=== PATIENT | female | born 1985 | race Caucasian/White ===

== ENCOUNTER 2016-11-03 15:45 | Emergency (ER) | payer OTHER ==
--- OUTSIDE RECORDS SUMMARY | ~2016-11-03 | XMS ---
Demographics + + + | Address | [facility] [address] | | | [place] [address] | + + + | Preferred Language | Unknown | + + + | Marital Status | Unknown | + + + | Judaism Affiliation | Unknown | + + + | Race | Unknown | + + + | Ethnic Group | Unknown | + + + Author + + + | Author | [facility] | + + + | Organization | [facility] | + + + | Address | [address] | | | [place] [address] | + + + | Phone | | + + + Care Team Providers + + + + | Care Community Living Coach Name | Role | Phone | + + + + Unavailable | Unavailable | + + + + PROBLEMS +---------+ + + +--------+ + + | Type | Condition | ICD9-CM | [id number] | Onset | Condition | SNOMED | | | | Code | Code | Dates | Status | Code | +---------+ + + +--------+ + + | Problem | Essential | | I10 | | Active | 04017770 | | | (primary) | | | | | | | | hypertensi | | | | | | | | on | | | | | | +---------+ + + +--------+ + + | Problem | Hyperlipid | | E78.5 | | Active | 72432898 | | | emia | | | | | | +---------+ + + +--------+ + + | Problem | TMJ | 524.60 | | | Active | 06424655 | | | DISORDERS | | | | | | | | NOS | | | | | | +---------+ + + +--------+ + + | Problem | Tendonitis | 726.90 | | | Active | 71634966 | | | NOS | | | | | | +---------+ + + +--------+ + + | Problem | UTI | 599.0 | | | Active | 77596176 | | | [Urinary | | | | | | | | tract | | | | | | | | infection] | | | | | | +---------+ + + +--------+ + + ALLERGIES Unknown Allergies SOCIAL HISTORY No smoking Hx information available PLAN OF CARE VITAL SIGNS MEDICATIONS Unknown Medications RESULTS No Results PROCEDURES No Known procedures IMMUNIZATIONS No Known Immunizations"
[~2016-11-03 15:45] MED LIST: ATORVASTATIN CA20 MG PO; BUDEPRION XL300 MG PO; DASETTA1 EACH PO; DIVALPROEX SOD250 MG PO; ESCITALOPRAM OX20 MG PO; GABAPENTIN400 MG PO; GEODON60 MG PO; HYDRALAZINE HCL25 MG PO; HYDROXYZINE HCL50 MG PO; KEFLEX500 MG PO; LAMOTRIGINE200 MG PO; MELOXICAM15 MG PO; METHOCARBAMOL750 MG PO; NAPROXEN500 MG PO; NUCYNTA50 MG PO; PRENATAL PLUS1 EAC2 PO; PROPRANOLOL HCL40 MG PO; PROPRANOLOL HCL80 M1 PO; RANITIDINE HCL150 MG PO; TIMOLOL MALEATE MC
== END 2016-11-03 15:55 | disposition left against medical advice (07) ==
LOC: ED 15:45
DX: Z53.21 Procedure and treatment not carried out due to patient leaving prior to being seen by health care provider (principal)

== ENCOUNTER 2016-11-10 23:28 | Emergency (ER) | payer OTHER ==
[~2016-11-10] VITALS: Ht 167.6 cm; Wt 72.6 kg
--- OUTSIDE RECORDS SUMMARY | ~2016-11-10 | XMS ---
Demographics + + + | Address | [facility] [address] | | | [place] [address] | + + + | Preferred Language | Unknown | + + + | Marital Status | Unknown | + + + | Denominational Affiliation | Unknown | + + + | Race | Unknown | + + + | Ethnic Group | Unknown | + + + Author + + + | Author | [facility] | + + + | Organization | [facility] | + + + | Address | [address] | | | [place] [address] | + + + | Phone | | + + + Care Team Providers + + + + | Care Biztalk Developer Name | Role | Phone | + + + + Unavailable | Unavailable | + + + + PROBLEMS +---------+ + + +--------+ + + | Type | Condition | ICD9-CM | [id number] | Onset | Condition | SNOMED | | | | Code | Code | Dates | Status | Code | +---------+ + + +--------+ + + | Problem | TMJ | 524.60 | | | Active | [id number] | | | DISORDERS | | | | | | | | NOS | | | | | | +---------+ + + +--------+ + + | Problem | Crushing | S67.21XA | | | Active | 20208476 | | | injury of | | | | | | | | finger of | | | | | | | | right hand | | | | | | +---------+ + + +--------+ + + | Problem | Crushing | | S67.198A | | Active | 59820270 | | | injury of | | | | | | | | other | | | | | | | | finger, | | | | | | | | initial | | | | | | | | encounter | | | | | | +---------+ + + +--------+ + + | Problem | Tendonitis | 726.90 | | | Active | 69530961 | | | NOS | | | | | | +---------+ + + +--------+ + + | Problem | UTI | 599.0 | | | Active | 71444066 | | | [Urinary | | | | | | | | tract | | | | | | | | infection] | | | | | | +---------+ + + +--------+ + + | Problem | Essential | | I10 | | Active | 83614645 | | | (primary) | | | | | | | | hypertensi | | | | | | | | on | | | | | | +---------+ + + +--------+ + + | Problem | Hyperlipid | | E78.5 | | Active | 36983238 | | | emia | | | | | | +---------+ + + +--------+ + + ALLERGIES + + + + +--------+ | Substance | Reaction | Event Type | Date | Status | + + + + +--------+ | Robitussin AC | Unknown | Drug Allergy | Oct, | Active | + + + + +--------+ | Codeine | Unknown | Drug Allergy | Oct, | Active | + + + + +--------+ | Vicodin | Unknown | Drug Allergy | Oct, | Active | + + + + +--------+ | Ditropan | Unknown | Drug Allergy | Oct, | Active | + + + + +--------+ SOCIAL HISTORY No smoking Hx information available PLAN OF CARE + +---------+ | Activity | Details | + +---------+ +---+ | | +---+ + + + | Follow Up | prn Reason:null | + + + | Pending Test | X ray : Finger LT 2nd Digit 2+ view | + + + VITAL SIGNS + + + + | Height | 66 in | 2016-11-03 | + + + + | Weight | 165.6 lbs | 2016-11-03 | + + + + | BMI | 26.73 kg/m2 | 2016-11-03 | + + + + | Temperature | 98.1 degrees Fahrenheit | 2016-11-03 | + + + + | Heart Rate | 78 /min | 2016-11-03 | + + + + | Blood pressure systolic | 116 mm Hg | 2016-11-03 | + + + + | Blood pressure diastolic | 77 mm Hg | 2016-11-03 | + + + + MEDICATIONS + + + + +--------+ + +--------+ | Medicati | Instruct | Dosage | Frequenc | Start | End Date | Duration | Status | | on | ions | | y | Date | | | | + + + + +--------+ + +--------+ | Divalpro | | | | | | | Active | | ex | | | | | | | | | Sodium | | | | | | | | | 250 MG | | | | | | | | + + + + +--------+ + +--------+ | Methocar | Orally | 1 tablet | 4h | | | | Active | | bamol | every 4 | | | | | | | | 750 MG | hrs | | | | | | | + + + + +--------+ + +--------+ | Atorvast | Orally | 1 tablet | 24h | | | | Active | | atin | Once a | | | | | | | | Calcium | day | | | | | | | | 20 MG | | | | | | | | + + + + +--------+ + +--------+ | HydrOXYz | Orally | 1 tablet | 6h | | | | Active | | ine HCl | every 6 | as | | | | | | | 50 MG | hrs | needed | | | | | | + + + + +--------+ + +--------+ | BuPROPio | Orally | 1 tablet | 24h | | | | Active | | n HCl ER | Once a | in the | | | | | | | (XL) | day | morning | | | | | | | 300 MG | | | | | | | | + + + + +--------+ + +--------+ | Tapentad | Orally | 1 tablet | 6h | | | | Active | | ol HCl | every 6 | | | | | | | | 50 MG | hrs | | | | | | | + + + + +--------+ + +--------+ | Proprano | Orally | 1 tablet | 12h | | | | Active | | lol HCl | Twice a | | | | | | | | 80 MG | day | | | | | | | + + + + +--------+ + +--------+ | Naproxen | Orally | 1 tablet | 12h | | | | Active | | 500 MG | Twice a | | | | | | | | | day | | | | | | | + + + + +--------+ + +--------+ | Ranitidi | Orally | 1 | 24h | | | | Active | | ne HCl | Once a | capsule | | | | | | | 150 MG | day | at | | | | | | | | | bedtime | | | | | | + + + + +--------+ + +--------+ | Norethin | Orally | 1 tablet | 24h | | | | Active | | dron-Eth | Once a | | | | | | | | inyl | day | | | | | | | | Estrad-F | | | | | | | | | e | | | | | | | | | 1-20/1-3 | | | | | | | | | 0/1-35 | | | | | | | | | MG-MCG | | | | | | | | + + + + +--------+ + +--------+ | Escitalo | Orally | 0.5 | 24h | | | | Active | | pram | Once a | tablet | | | | | | | Oxalate | day | | | | | | | | 20 MG | | | | | | | | + + + + +--------+ + +--------+ | Lamotrig | Orally | 1 tablet | 12h | | | | Active | | ine 200 | Twice a | | | | | | | | MG | day | | | | | | | + + + + +--------+ + +--------+ RESULTS No Results PROCEDURES + + + + + | Procedure | Date Ordered | Related Diagnosis | Body Site | + + + + + | Est Level III | November 03, 2016 | | | | Intermediate | | | | + + + + + IMMUNIZATIONS No Known Immunizations"
--- OUTSIDE RECORDS SUMMARY | ~2016-11-10 | XMS ---
Demographics + + + | Address | [facility] [address] | | | [place] [address] | + + + | Preferred Language | Unknown | + + + | Marital Status | Unknown | + + + | Sikhism Affiliation | Unknown | + + + | Race | Unknown | + + + | Ethnic Group | Unknown | + + + Author + + + | Author | [facility] | + + + | Organization | [facility] | + + + | Address | [address] | | | [place] [address] | + + + | Phone | | + + + Care Team Providers + + + + | Care Ski Patrol Name | Role | Phone | + + + + Unavailable | Unavailable | + + + + PROBLEMS +---------+ + + +--------+ + + | Type | Condition | ICD9-CM | [id number] | Onset | Condition | SNOMED | | | | Code | Code | Dates | Status | Code | +---------+ + + +--------+ + + | Problem | Essential | | I10 | | Active | [id number] | | | (primary) | | | | | | | | hypertensi | | | | | | | | on | | | | | | +---------+ + + +--------+ + + | Problem | Hyperlipid | | E78.5 | | Active | 05670338 | | | emia | | | | | | +---------+ + + +--------+ + + | Problem | TMJ | 524.60 | | | Active | 98786851 | | | DISORDERS | | | | | | | | NOS | | | | | | +---------+ + + +--------+ + + | Problem | Tendonitis | 726.90 | | | Active | 42159567 | | | NOS | | | | | | +---------+ + + +--------+ + + | Problem | UTI | 599.0 | | | Active | 10804657 | | | [Urinary | | | [...] + + + | Follow Up | 3 Months Reason:null | + + + | Pending Test | Sedimentation Rate-Westergren | + + + | Pending Test | Comp. Metabolic Panel (14) | + + + | Pending Test | Lipid Panel | + + + | Pending Test | TSH, 3rd Generation | + + + VITAL SIGNS + + + + | Height | 66 in | 2016-10-29 | + + + + | Weight | 170.2 lbs | 2016-10-29 | + + + + | BMI | 27.47 kg/m2 | 2016-10-29 | + + + + | Temperature | 98.7 degrees Fahrenheit | 2016-10-29 | + + + + | Heart Rate | 84 /min | 2016-10-29 | + + + + | Blood pressure systolic | 118 mm Hg | 2016-10-29 | + + + + | Blood pressure diastolic | 80 mm Hg | 2016-10-29 | + + + + MEDICATIONS + [...] + + + +--------+ + +--------+ | Cephalex | Orally | 1 tablet | 12h | | | | Active | | in 500 | every 12 | | | | | | | | MG | hrs | | | | [...] + + + + | Est Level II | October 29, 2016 | | | | Limited | | | | + + + + + IMMUNIZATIONS No Known Immunizations"
--- OUTSIDE RECORDS SUMMARY | ~2016-11-10 | XMS ---
Demographics + + + | Address | [facility] [address] | | | [place] [address] | + + + | Preferred Language | Unknown | + + + | Marital Status | Unknown | + + + | Nondenominational Affiliation | Unknown | + + + | Race | Unknown | + + + | Ethnic Group | Unknown | + + + Author + + + | Author | [facility] | + + + | Organization | [facility] | + + + | Address | [address] | | | [place] [address] | + + + | Phone | | + + + Care Team Providers + + + + | Care Logistics Analytics Manager Name | Role | Phone | + + + + Unavailable | Unavailable | + + + + PROBLEMS +---------+ + + +--------+ + + | Type | Condition | ICD9-CM | [id number] | Onset | Condition | SNOMED | | | | Code | Code | Dates | Status | Code | +---------+ + + +--------+ + + | Problem | TMJ | 524.60 | | | Active | [id number] | | | DISORDERS | | | | | | | | NOS | | | | | | +---------+ + + +--------+ + + | Problem | Crushing | S67.21XA | | | Active | 03621407 | | | injury of | | | | | | | | finger of | | | | | | | | right hand | | | | | | +---------+ + + +--------+ + + | Problem | Crushing | | S67.198A | | Active | 36830231 | | | injury of | | [...] | 726.90 | | | Active | 67082170 | | | NOS | | | | | | +---------+ + + +--------+ + + | Problem | UTI | 599.0 | | | Active | 41423034 | | | [Urinary | | | | | | | | tract | | | | | | | | infection] | | | | | | +---------+ + + +--------+ + + | Problem | Essential | | I10 | | Active | 58070218 | | | (primary) | | | | | | | | hypertensi | | | | | | | | on | | | | | | +---------+ + + +--------+ + + | Problem | Hyperlipid | | E78.5 | | Active | 67500950 | | | emia | | | [...]
== END 2016-11-11 00:15 | disposition home or self-care (01) ==
LOC: ED 23:28
DX: M54.5 Low back pain (principal); G89.29 Other chronic pain; J45.909 Unspecified asthma, uncomplicated; F31.9 Bipolar disorder, unspecified; F20.9 Schizophrenia, unspecified; Z87.891 Personal history of nicotine dependence; Z98.51 Tubal ligation status; Z98.890 Other specified postprocedural states; Z88.5 Allergy status to narcotic agent; Z88.8 Allergy status to other drugs, medicaments and biological substances; Z79.899 Other long term (current) drug therapy
CPT/HCPCS: 99282

== ENCOUNTER 2019-05-07 23:05 | Emergency (ER) | payer OTHER ==
[~2019-05-07] VITALS: Ht 167.6 cm; Wt 87.1 kg
== END 2019-05-08 00:28 | disposition home or self-care (01) ==
LOC: ED 23:05
DX: M25.511 Pain in right shoulder (principal); W06.XXXA Fall from bed, initial encounter; Y93.89 Activity, other specified; Y92.003 Bedroom of unspecified non-institutional (private) residence as the place of occurrence of the external cause
CPT/HCPCS: 73030; 99283-25

== ENCOUNTER 2019-06-22 14:07 | Emergency (ER) | payer OTHER ==
[~2019-06-22] VITALS: Ht 167.6 cm; Wt 87.1 kg
== END 2019-06-22 14:25 | disposition home or self-care (01) ==
LOC: ED 14:07
DX: M54.5 Low back pain (principal); X50.9XXA Other and unspecified overexertion or strenuous movements or postures, initial encounter

== ENCOUNTER 2020-11-28 12:21 | Emergency (ER) | payer MEDICARE, OTHER ==
[~2020-11-28] VITALS: Ht 167.6 cm; Wt 80.3 kg
== END 2020-11-28 14:58 | disposition home or self-care (01) ==
LOC: ED 12:21
DX: S91.112A Laceration without foreign body of left great toe without damage to nail, initial encounter (principal); Z23 Encounter for immunization; W01.198A Fall on same level from slipping, tripping and stumbling with subsequent striking against other object, initial encounter; J45.909 Unspecified asthma, uncomplicated; F17.200 Nicotine dependence, unspecified, uncomplicated; Z88.5 Allergy status to narcotic agent; Z88.8 Allergy status to other drugs, medicaments and biological substances; Z88.1 Allergy status to other antibiotic agents; Z79.899 Other long term (current) drug therapy
CPT/HCPCS: 12001; 90471; 90715; 99282-25

== ENCOUNTER 2021-01-27 19:46 | Emergency (ER) | payer MEDICARE, OTHER ==
[~2021-01-27] VITALS: Ht 167.6 cm; Wt 80.3 kg
== END 2021-01-27 22:27 | disposition home or self-care (01) ==
LOC: ED 19:46
DX: R10.30 Lower abdominal pain, unspecified (principal); J45.909 Unspecified asthma, uncomplicated; F17.200 Nicotine dependence, unspecified, uncomplicated; Z88.5 Allergy status to narcotic agent; Z88.8 Allergy status to other drugs, medicaments and biological substances; Z79.899 Other long term (current) drug therapy
CPT/HCPCS: 74177; 80053; 81001; 84703; 85025; 96374; 99284-25; J2405; J7030; Q9967

== ENCOUNTER 2021-02-08 22:40 | Emergency (ER) | payer MEDICARE, OTHER ==
[~2021-02-08] VITALS: Ht 167.6 cm; Wt 77.1 kg
[2021-02-08] MEDS ORDERED: DIVALPROEX SOD250 MG PO (23:02)
[2021-02-08] MEDS ORDERED: SEROQUEL100 MG PO (23:03)
[2021-02-08] MEDS ORDERED: GEODON40 MG PO (23:04)
--- NOTE | 2021-02-09 22:31 | EKG ---
[facility] [address] [facility] [place], [place] [address] Signed Normal sinus rhythm Nonspecific ST and T wave abnormality Abnormal ECG No previous ECGs available Confirmed by MARI MAZARIEGOS MD ([id number]) on 02/09/2021 10:31:51 PM Electronically Signed By: MARI MAZARIEGOS MD 02/09/212230 PATIENT NAME: DELON HERMOSILLO Electrocardiogram DATE OF : 83 PHYSICIAN: MARI MAZARIEGOS MD REPORT #: [id number] REPORT IS CONFIDENTIAL AND NOT TO BE RELEASED WITHOUT AUTHORIZATION
== END 2021-02-09 12:01 | disposition home or self-care (01) ==
LOC: ED 22:40
DX: R45.851 Suicidal ideations (principal); J45.909 Unspecified asthma, uncomplicated; F17.200 Nicotine dependence, unspecified, uncomplicated; Y90.0 Blood alcohol level of less than 20 mg/100 ml; Z20.822 Contact with and (suspected) exposure to COVID-19; Z88.5 Allergy status to narcotic agent; Z88.8 Allergy status to other drugs, medicaments and biological substances; Z79.899 Other long term (current) drug therapy
CPT/HCPCS: 80053; 81001; 84443; 84703; 85025; 93005; 93010; 99285-25; C9803; G0480; U0003

== ENCOUNTER 2021-04-26 19:21 | Emergency (ER) | payer MEDICARE ==
[~2021-04-26] VITALS: Ht 167.6 cm; Wt 68.5 kg
[~2021-04-26 19:21] MED LIST changes: +GEODON40 MG PO; +SEROQUEL100 MG PO
[2021-04-26] MEDS ORDERED: BENADRYL ALLERG25 MG PO (20:23)
[2021-04-26] MEDS ORDERED: TRAZODONE HCL50 MG PO (20:26)
[2021-04-26] MEDS ORDERED: OMEPRAZOLE20 MG PO (20:26)
== END 2021-04-26 23:28 | disposition home or self-care (01) ==
LOC: ED 19:21
DX: G40.909 Epilepsy, unspecified, not intractable, without status epilepticus (principal); S09.90XA Unspecified injury of head, initial encounter; W18.30XA Fall on same level, unspecified, initial encounter; J45.909 Unspecified asthma, uncomplicated; F17.200 Nicotine dependence, unspecified, uncomplicated; Z88.5 Allergy status to narcotic agent; Z88.8 Allergy status to other drugs, medicaments and biological substances; Z79.899 Other long term (current) drug therapy
CPT/HCPCS: 70450; 80048; 80164; 81001; 85025; 99284-25; G0480

== ENCOUNTER 2021-06-01 13:24 | Emergency (ER) | payer MEDICARE ==
[~2021-06-01] VITALS: Ht 167.6 cm; Wt 68.5 kg
[~2021-06-01 13:24] MED LIST changes: +BENADRYL ALLERG25 MG PO; +OMEPRAZOLE20 MG PO; +TRAZODONE HCL50 MG PO
[2021-06-01] MEDS ORDERED: QUETIAPINE FUMA50 MG PO (13:43)
[2021-06-01] MEDS ORDERED: AMPHETAMINE SAL10 MG PO (13:43)
== END 2021-06-01 14:29 | disposition home or self-care (01) ==
LOC: ED 13:24
DX: S60.031A Contusion of right middle finger without damage to nail, initial encounter (principal); J45.909 Unspecified asthma, uncomplicated; F17.200 Nicotine dependence, unspecified, uncomplicated; Z88.5 Allergy status to narcotic agent; Z88.8 Allergy status to other drugs, medicaments and biological substances; Z79.899 Other long term (current) drug therapy; W23.0XXA Caught, crushed, jammed, or pinched between moving objects, initial encounter
CPT/HCPCS: 73130; 99283-25

== ENCOUNTER 2021-07-04 13:25 | Emergency (ER) | payer MEDICARE ==
[~2021-07-04] VITALS: Ht 167.6 cm; Wt 70.3 kg
[~2021-07-04 13:25] MED LIST changes: +AMPHETAMINE SAL10 MG PO; +QUETIAPINE FUMA50 MG PO
== END 2021-07-04 14:21 | disposition home or self-care (01) ==
LOC: ED 13:25
DX: S93.401A Sprain of unspecified ligament of right ankle, initial encounter (principal); J45.909 Unspecified asthma, uncomplicated; F17.200 Nicotine dependence, unspecified, uncomplicated; Z88.5 Allergy status to narcotic agent; Z88.8 Allergy status to other drugs, medicaments and biological substances; Z79.899 Other long term (current) drug therapy; X58.XXXA Exposure to other specified factors, initial encounter
CPT/HCPCS: 73610; 99283-25; A9270

== ENCOUNTER 2021-11-04 13:50 | Emergency (ER) | payer MEDICARE ==
[~2021-11-04] VITALS: Ht 167.6 cm; Wt 70.3 kg
[2021-11-04] MEDS ORDERED: NAPROSYN500 MG PO (15:11)
== END 2021-11-04 15:51 | disposition home or self-care (01) ==
LOC: ED 13:50
DX: M25.511 Pain in right shoulder (principal); J45.909 Unspecified asthma, uncomplicated; F17.200 Nicotine dependence, unspecified, uncomplicated; Z88.5 Allergy status to narcotic agent; Z88.8 Allergy status to other drugs, medicaments and biological substances; Z79.899 Other long term (current) drug therapy
CPT/HCPCS: 73030; 99283-25

== ENCOUNTER 2022-02-20 11:38 | Emergency (ER) | payer OTHER, MEDICARE ==
[~2022-02-20] VITALS: Ht 167.6 cm; Wt 68.4 kg
[~2022-02-20 11:38] MED LIST changes: +NAPROSYN500 MG PO
== END 2022-02-20 14:02 | disposition home or self-care (01) ==
LOC: ED 11:38
DX: S50.02XA Contusion of left elbow, initial encounter (principal); J45.909 Unspecified asthma, uncomplicated; F31.9 Bipolar disorder, unspecified; F20.9 Schizophrenia, unspecified; F17.200 Nicotine dependence, unspecified, uncomplicated; Z88.5 Allergy status to narcotic agent; Z88.8 Allergy status to other drugs, medicaments and biological substances; Z79.899 Other long term (current) drug therapy; V03.10XA Pedestrian on foot injured in collision with car, pick-up truck or van in traffic accident, initial encounter; Y92.488 Other paved roadways as the place of occurrence of the external cause
CPT/HCPCS: 73080; 99283-25; A9270